=== PATIENT | male | born 1980 | race Caucasian/White ===

== ENCOUNTER 2023-12-21 17:30 | Emergency (ER) | payer BC ==
[~2023-12-21] VITALS: Ht 177.8 cm; Wt 95.7 kg
[2023-12-21] MEDS ORDERED: BACTDSTA PO (17:45)
[2023-12-21 19:12] LABS: BASO # 0.1 10^3/uL (0.0-0.2); BASO % 0.7 % (0.0-1.0); EOS # 0.2 10^3/uL (0.0-0.5); HEMATOCRIT 44.4 % (42.0-52.0); HEMOGLOBIN 15.5 g/dl (13.5-17.5); LYMPH # 2.7 10^3/uL (1.5-5.0); LYMPH % 30.2 % (24.0-44.0); MEAN CORPUSCULAR HEMOGLOBIN 31.3 pg (27.0-33.0); MEAN CORPUSCULAR HGB CONC 34.9 g/dl (32.0-36.5); MEAN CORPUSCULAR VOLUME 89.5 fl (80.0-96.0); MONO # 0.7 10^3/uL (0.0-0.8); MONO % 7.8 % (2.0-8.0); NEUTROPHILS # 5.2 10^3/uL (1.5-8.5); PLATELET COUNT, AUTOMATED 303 10^3/uL (150-450); RED BLOOD COUNT 4.96 10^6/uL (4.30-6.10); WHITE BLOOD COUNT 8.9 10^3/uL (4.0-10.0)
[2023-12-21 19:18] LABS: ERYTHROCYTE SEDIMENTATION RATE 5 mm/hr (0-15)
[2023-12-21 19:36] LABS: C REACTIVE PROTEIN QUANTITATIV < 0.40 MG/DL (<1.0)
[2023-12-21 19:38] LABS: BLOOD UREA NITROGEN 18 MG/DL (9-23); CARBON DIOXIDE LEVEL 25 MMOL/L (20-31); CHLORIDE LEVEL 105 MMOL/L (98-107); CREATININE FOR GFR 1.07 MG/DL (0.70-1.30); GLOMERULAR FILTRATION RATE > 60.0 (>60); GLUCOSE, FASTING 78 MG/DL (60-100); POTASSIUM SERUM 4.1 MMOL/L (3.5-5.1); SODIUM LEVEL 137 MMOL/L (136-145)
[2023-12-21] MEDS ORDERED: ISOVUE-370 76% 100ML VIAL As Ordered ONE (19:43)
[2023-12-21 21:15] VITALS: BP 135/86; TEMP 97.8; O2SAT 96
== END 2023-12-21 21:22 | disposition home or self-care (01) ==
LOC: M ED 17:30
DX: L02.01 Cutaneous abscess of face (principal); J45.909 Unspecified asthma, uncomplicated; Z79.2 Long term (current) use of antibiotics
CPT/HCPCS: 36415; 70487; 80048; 85025; 85652; 86140; 87040; 99284; Q9967

== ENCOUNTER → 2023-12-29 | Outpatient (REF) | payer BC ==
[~2023-12-29] MED LIST: BACTDSTA PO
== END ==
LOC: M LAB REF 15:37
PROVIDERS: ATTEND Otolaryngology
DX: L02.01 Cutaneous abscess of face (principal); L08.9 Local infection of the skin and subcutaneous tissue, unspecified